=== PATIENT | male | born 1960 | race Caucasian/White ===

== ENCOUNTER 2021-11-02 19:49 | Emergency (ER) | payer OTHER ==
[2021-11-02 20:14] LABS: HEMOGLOBIN 12.8 gm/dl (14.0-17.5); RED BLOOD COUNT 4.12 M/UL (4.20-5.50); WHITE BLOOD COUNT 7.4 K/UL (4.5-11.0)
[2021-11-02 20:43] LABS: BUN/CREATININE RATIO 17 (0-10)
[2021-11-03] MEDS ORDERED: CARAFATE1 GM PO (00:35)
[2021-11-03] MEDS ORDERED: ZOFRAN ODT 4 MG4 MG SL (00:35)
[2021-11-03] MEDS ORDERED: COLACE 100MG C100 MG PO (00:35)
[2021-11-03] MEDS ORDERED: ONE DAILY ESS400 MCG PO (01:15)
== END 2021-11-03 02:06 | disposition home or self-care (01) ==
LOC: EDBD 19:49 → ER1 19:49
PROVIDERS: Family Medicine
DX: R07.9 Chest pain, unspecified (principal); E86.0 Dehydration; M54.9 Dorsalgia, unspecified; G89.29 Other chronic pain; I11.9 Hypertensive heart disease without heart failure; Z95.5 Presence of coronary angioplasty implant and graft
CPT/HCPCS: 71045; 80053; 82550; 82553; 83690; 84484; 85025; 93005; 96361; 96374; 99285; J2405; Q9967

== ENCOUNTER 2021-11-29 13:49 | Emergency (ER) | payer OTHER ==
[~2021-11-29 13:49] MED LIST: CARAFATE1 GM PO; COLACE 100MG C100 MG PO; ONE DAILY ESS400 MCG PO; ZOFRAN ODT 4 MG4 MG SL
[2021-11-29] MEDS ORDERED: ULTRAM50 MG PO (14:31)
[2021-11-29 14:39] LABS: HEMOGLOBIN 11.6 gm/dl (14.0-17.5); RED BLOOD COUNT 3.75 M/UL (4.20-5.50)
[2021-11-29] MEDS ORDERED: ZOFRAN 4 MG TAB4 MG PO (18:56)
[2021-11-29] MEDS ORDERED: ENULOSE10 GM/15 M PO (18:56)
== END 2021-11-29 19:16 | disposition home or self-care (01) ==
LOC: ER1 13:49
PROVIDERS: Emergency Medicine
DX: K59.00 Constipation, unspecified (principal); N17.9 Acute kidney failure, unspecified; E86.0 Dehydration; I11.0 Hypertensive heart disease with heart failure; I50.9 Heart failure, unspecified; I25.2 Old myocardial infarction; I48.91 Unspecified atrial fibrillation
CPT/HCPCS: 80048; 80053; 81001; 83690; 84484; 85025; 93005; 96361; 96374; 96375; 99284; J1885; J2405

== ENCOUNTER 2021-12-21 12:24 | Inpatient (IN) | payer OTHER ==
[~2021-12-21] VITALS: Ht 172.7 cm; Wt 59.2 kg
[~2021-12-21 12:24] MED LIST changes: +ENULOSE10 GM/15 M PO; +ULTRAM50 MG PO; +ZOFRAN 4 MG TAB4 MG PO
[2021-12-21 14:33] LABS: RED BLOOD COUNT 3.53 M/UL (4.20-5.50); WHITE BLOOD COUNT 16.5 K/UL (4.5-11.0)
[2021-12-22 03:48] LABS: HEMOGLOBIN 9.9 gm/dl (14.0-17.5); RED BLOOD COUNT 3.19 M/UL (4.20-5.50)
[2021-12-22 03:54] LABS: WHITE BLOOD COUNT 11.9 K/UL (4.5-11.0)
[2021-12-22] MEDS ORDERED: METOPROLOL SUCC25 MG PO (11:11)
[2021-12-22] MEDS ORDERED: FUROSEMIDE20 MG PO (11:12)
[2021-12-22] MEDS ORDERED: ISOSORBIDE MONO30 MG PO (11:12)
[2021-12-22] MEDS ORDERED: ATORVASTATIN CA80 MG PO (11:13)
[2021-12-22] MEDS ORDERED: ZANAFLEX 4 MG TA4 MG PO (11:13)
[2021-12-22] MEDS ORDERED: BUSPIRONE HCL5 MG PO (11:13)
[2021-12-22] MEDS ORDERED: NITROSTAT0.4 MG PO (11:13)
[2021-12-22] MEDS ORDERED: OMEPRAZOLE20 MG PO (11:14)
[2021-12-22] MEDS ORDERED: ZOLOFT100 MG PO (11:14)
[2021-12-22] MEDS ORDERED: MELOXICAM15 MG PO (11:14)
[2021-12-22] MEDS ORDERED: AMIODARONE HCL200 MG PO (11:15)
[2021-12-22] MEDS ORDERED: LISINOPRIL20 MG PO (11:15)
[2021-12-22] MEDS ORDERED: BRILINTA90 MG PO (11:15)
[2021-12-22] MEDS ORDERED: FLONASE 0.05% N16 GM (11:16)
[2021-12-22] MEDS ORDERED: SEREVENT DISKU50 MCG PO (11:16)
[2021-12-22 11:38] LABS: ADENOVIRUS F 40/41 Not Detected (Negative); ASTROVIRUS Not Detected (Negative); CAMPYLOBACTER Not Detected (Negative); CRYPTOSPORIDIUM Not Detected (Negative); E.COLI 0157 Not Detected (Negative); ENTAMOEBA HISTOLYTICA Not Detected (Negative); ENTEROAGGREGATIVE E.COLI (EAEC Not Detected (Negative); ENTEROPATHOGENIC E.COLI (EPEC) Not Detected (Negative); ENTEROTOXIGENIC E.COLI (ETEC) Not Detected (Negative); GIARDIA LAMBLIA Not Detected (Negative); NOROVIRUS GI/GII Not Detected (Negative); PLESIOMONAS SHIGELLOIDES Not Detected (Negative); ROTOVIRUS A Not Detected (Negative); SALMONELLA Not Detected (Negative); SAPOVIRUS Not Detected (Negative); SHIG/ENTEROINVAS.ECOLI (EIEC) Not Detected (Negative); SHIGA-LIK TOX.PRO.E.COLI (STEC Not Detected (Negative); VIBRIO Not Detected (Negative); VIBRIO CHOLERAE Not Detected (Negative); YERSINIA ENTEROCOLITICA Not Detected (Negative)
[2021-12-23 03:02] LABS: HEMOGLOBIN 9.3 gm/dl (14.0-17.5); WHITE BLOOD COUNT 11.2 K/UL (4.5-11.0)
[2021-12-23 07:10] LABS: HIV AB/P24 AG SCREEN Non Reactive (Non Reactive)
[2021-12-24 02:48] LABS: RED BLOOD COUNT 3.2 M/UL (4.20-5.50); WHITE BLOOD COUNT 10.8 K/UL (4.5-11.0)
[2021-12-24 03:44] LABS: BUN/CREATININE RATIO 22 (0-10)
[2021-12-25 00:07] LABS: ADENOVIRUS F 40/41 Not Detected (Negative); ASTROVIRUS Not Detected (Negative); CAMPYLOBACTER Not Detected (Negative); CRYPTOSPORIDIUM Not Detected (Negative); E.COLI 0157 Not Detected (Negative); ENTAMOEBA HISTOLYTICA Not Detected (Negative); ENTEROAGGREGATIVE E.COLI (EAEC Not Detected (Negative); ENTEROPATHOGENIC E.COLI (EPEC) Not Detected (Negative); ENTEROTOXIGENIC E.COLI (ETEC) Not Detected (Negative); GIARDIA LAMBLIA Not Detected (Negative); PLESIOMONAS SHIGELLOIDES Not Detected (Negative); ROTOVIRUS A Not Detected (Negative); SALMONELLA Not Detected (Negative); SAPOVIRUS Not Detected (Negative); SHIG/ENTEROINVAS.ECOLI (EIEC) Not Detected (Negative); SHIGA-LIK TOX.PRO.E.COLI (STEC Not Detected (Negative); VIBRIO Not Detected (Negative); VIBRIO CHOLERAE Not Detected (Negative); YERSINIA ENTEROCOLITICA Not Detected (Negative)
[2021-12-25 04:50] LABS: HEMOGLOBIN 9.6 gm/dl (14.0-17.5); RED BLOOD COUNT 3.1 M/UL (4.20-5.50); WHITE BLOOD COUNT 8.5 K/UL (4.5-11.0)
[2021-12-25 05:04] LABS: BUN/CREATININE RATIO 22 (0-10)
[2021-12-25 07:39] LABS: NOROVIRUS GI/GII DETECTED (Negative)
[2021-12-25 17:17] LABS: ADENOVIRUS F 40/41 Not Detected (Negative); ASTROVIRUS Not Detected (Negative); CAMPYLOBACTER Not Detected (Negative); CRYPTOSPORIDIUM Not Detected (Negative); E.COLI 0157 Not Detected (Negative); ENTAMOEBA HISTOLYTICA Not Detected (Negative); ENTEROAGGREGATIVE E.COLI (EAEC Not Detected (Negative); ENTEROPATHOGENIC E.COLI (EPEC) Not Detected (Negative); ENTEROTOXIGENIC E.COLI (ETEC) Not Detected (Negative); GIARDIA LAMBLIA Not Detected (Negative); NOROVIRUS GI/GII Not Detected (Negative); PLESIOMONAS SHIGELLOIDES Not Detected (Negative); ROTOVIRUS A Not Detected (Negative); SALMONELLA Not Detected (Negative); SAPOVIRUS Not Detected (Negative); SHIG/ENTEROINVAS.ECOLI (EIEC) Not Detected (Negative); SHIGA-LIK TOX.PRO.E.COLI (STEC Not Detected (Negative); VIBRIO Not Detected (Negative); VIBRIO CHOLERAE Not Detected (Negative); YERSINIA ENTEROCOLITICA Not Detected (Negative)
[2021-12-25 18:08] LABS: HBSAG SCREEN Negative (Negative); HCV AB >11.0 (0.0-0.9); HCV LOG10 5.204 (.); HEP A AB, IGM Negative (Negative); HEP B CORE AB, IGM Negative (Negative); HEPATITIS C QUANTITATION 160000 IU/mL (.)
[2021-12-26 05:08] LABS: HEMOGLOBIN 10.2 gm/dl (14.0-17.5); RED BLOOD COUNT 3.29 M/UL (4.20-5.50); WHITE BLOOD COUNT 10.2 K/UL (4.5-11.0)
[2021-12-26 06:07] LABS: BUN/CREATININE RATIO 18 (0-10)
[2021-12-26] MEDS ORDERED: BRILINTA60 MG PO (09:10)
[2021-12-26] MEDS ORDERED: ISOSORBIDE MONO30 MG PO (09:10)
[2021-12-26] MEDS ORDERED: CEFDINIR300 MG PO (09:18)
== END 2021-12-26 11:51 | DRG 682 ==
LOC: ER1 12:24 → PROG CARE 18:22 → CDU 18:22 → M/S 18:22 → PROG CARE 20:50 → M/S 12-22 17:38
PROVIDERS: Emergency Medicine; Internal Medicine; ADMIT Internal Medicine
PROC: 3E033XZ Introduction of Vasopressor into Peripheral Vein, Percutaneous Approach (ICD-10-PCS; 2021-12-22)
PROC: B24BZZZ Ultrasonography of Heart with Aorta (ICD-10-PCS; principal; 2021-12-25)
DX: N17.9 Acute kidney failure, unspecified (principal); G93.41 Metabolic encephalopathy; E87.2 Acidosis; N39.0 Urinary tract infection, site not specified; I25.10 Atherosclerotic heart disease of native coronary artery without angina pectoris; E78.5 Hyperlipidemia, unspecified; E88.09 Other disorders of plasma-protein metabolism, not elsewhere classified; K21.9 Gastro-esophageal reflux disease without esophagitis; I12.9 Hypertensive chronic kidney disease with stage 1 through stage 4 chronic kidney disease, or unspecified chronic kidney disease; N18.9 Chronic kidney disease, unspecified; B19.20 Unspecified viral hepatitis C without hepatic coma; B96.20 Unspecified Escherichia coli [E. coli] as the cause of diseases classified elsewhere; D63.1 Anemia in chronic kidney disease; E86.0 Dehydration; M54.50 Low back pain, unspecified; K52.9 Noninfective gastroenteritis and colitis, unspecified; G89.29 Other chronic pain; R74.01 Elevation of levels of liver transaminase levels; Z95.1 Presence of aortocoronary bypass graft; Z90.49 Acquired absence of other specified parts of digestive tract; Z82.49 Family history of ischemic heart disease and other diseases of the circulatory system; Z79.899 Other long term (current) drug therapy
CPT/HCPCS: ECHO; 36415; 70450; 71045; 72040; 80053; 80061; 80074; 80307; 81001; 82140; 82150; 82270; 82436; 82533; 82550; 82553; 82570; 82607; 82962; 83036; 83605; 83690; 83735; 83880; 84100; 84133; 84156; 84300; 84439; 84443; 84484; 85025; 85027; 86140; 87040; 87077; 87086; 87186; 87389; 87507; 89050; 93005; 93306; 97116; 97116-GP-CQ; 97162; 97166; 99285; J0696; J1170; J1650; P9047